=== PATIENT | male | born 1960 | race Caucasian/White ===

== ENCOUNTER 2017-05-25 20:52 | Emergency (ER) | payer OTHER ==
[2017-05-25 21:45] LABS: Anion Gap 14 mmol/L (10-20); BUN (Urea Nitrogen) 13 mg/dL (8.4-25.7); Calc. Creatinine Clearance 0 mL/min (70-130); Calcium 9.4 mg/dL (7.8-10.44); Carbon Dioxide 24 mmol/L (22-29); Chloride 105 mmol/L (98-107); Estimated GFR-MDRD Greater than 90; Glucose 136 mg/dL (70-105); Potassium 4.1 mmol/L (3.5-5.1); Sodium 139 mmol/L (136-145)
[2017-05-25 21:47] LABS: CKMB 1.9 ng/mL (0-6.6); Troponin I Less than 0.010 ng/mL (< 0.028)
[2017-05-25 21:52] LABS: #Basophils 0.1 thou/uL (0.0-0.2); #Eosinphils 0.2 thou/uL (0.0-0.7); #Lymphocytes 1.8 thou/uL (1.20-3.40); #Monocytes 0.9 thou/uL (0.11-0.59); #Neutrophils 5.6 thou/uL (1.40-6.50); %Basophils 1.1 % (0.0-1.0); %Eosinophils 2.6 % (0.0-10.0); %Lymphocytes 20.9 % (21.0-51.0); %Monocytes 9.8 % (0.0-10.0); %Neutrophils 65.5 % (42.0-75.0); Hemoglobin 16.8 g/dL (14.0-18.0); Mean Corpuscular HGB CONC 36.3 g/dL (32.0-36.0); Mean Corpuscular Hemoglobin 34.7 pg (27.0-31.0); Mean Corpuscular Volume 95.6 fl (80.0-94.0); Platelet Count 172 thou/uL (130-400); Red Blood Cell (RBC) Count 4.83 mill/uL (4.70-6.10); White Blood Cell (WBC) Count 8.6 thou/uL (4.8-10.8)
[2017-05-25 21:57] LABS: Band 3 % (5-11); Eosinophils 2 % (0-10); Lymphocytes 21 % (21-51); Manual Diff?? YES; Neutrophil 63 % (42-75)
[2017-05-25 21:58] LABS: Monocytes 10 % (0-10); PLT Morphology Comment Appears Adequate; RBC Morphology Normal; Vacuoles SLIGHT
[2017-05-25 21:59] LABS: MDiff Complete? YES
[2017-05-25] MEDS ORDERED: Ketorolac Tromethamine 30 MG/ML VIAL ONE (21:59)
== END 2017-05-25 22:24 ==
LOC: BURERS 20:52
DX: I10 Essential (primary) hypertension (principal); I25.2 Old myocardial infarction; J43.9 Emphysema, unspecified; F41.9 Anxiety disorder, unspecified; F32.9 Major depressive disorder, single episode, unspecified; I25.10 Atherosclerotic heart disease of native coronary artery without angina pectoris; F17.210 Nicotine dependence, cigarettes, uncomplicated
CPT/HCPCS: 36415; 80048; 82553; 84484; 85025; 93005; 96374; J1885

== ENCOUNTER 2018-02-09 23:12 | Emergency (ER) | payer OTHER ==
[2018-02-09] MEDS ORDERED: Nitroglycerin 0.4 MG TAB (25 Tab Bottle) ONE (23:40)
[2018-02-09 23:47] LABS: Hemoglobin 15.7 g/dL (14.0-18.0); Mean Corpuscular HGB CONC 38.6 g/dL (32.0-36.0); Mean Corpuscular Hemoglobin 32.8 pg (27.0-31.0); Mean Corpuscular Volume 84.9 fL (78.0-98.0); Mean Platelet Volume 5.8 fL (7.4-10.4); Platelet Count 129 thou/uL (130-400); RBC Distribution Width 9.4 % (11.5-14.5); Red Blood Cell (RBC) Count 4.78 mill/uL (4.70-6.10); White Blood Cell (WBC) Count 7.5 thou/uL (4.8-10.8)
[2018-02-09] MEDS ORDERED: cloNIDine 0.1 MG TAB ONE (23:55)
[2018-02-09 23:59] LABS: ALT (SGPT) 29 U/L (8-55); AST (SGOT) 18 U/L (5-34); Albumin 3.3 g/dL (3.5-5.0); Alkaline Phosphatase 86 U/L (40-150); Anion Gap 11 mmol/L (10-20); BUN (Urea Nitrogen) 9 mg/dL (8.4-25.7); Bilirubin, Total 0.4 mg/dL (0.2-1.2); Calc. Creatinine Clearance 0 mL/min (70-130); Carbon Dioxide 26 mmol/L (22-29); Chloride 109 mmol/L (98-107); Estimated GFR-MDRD Greater than 90; Globulin 3.2 g/dL (2.4-3.5); Glucose 177 mg/dL (70-105); Lipase 26 U/L (8-78); Potassium 3.7 mmol/L (3.5-5.1); Protein, Total 6.5 g/dL (6.0-8.3); Sodium 142 mmol/L (136-145)
[2018-02-10] LABS: Troponin I Less than 0.010 ng/mL (< 0.028)
[2018-02-10 00:06] LABS: #Basophils 0.1 thou/uL (0.0-0.2); #Eosinphils 0.1 thou/uL (0.0-0.7); #Monocytes 0.8 thou/uL (0.11-0.59); #Neutrophils 4.5 thou/uL (1.40-6.50); %Basophils 1.4 % (0.0-1.0); %Eosinophils 1.9 % (0.0-10.0); %Lymphocytes 26.8 % (21.0-51.0); %Monocytes 10.6 % (0.0-10.0); %Neutrophils 59.3 % (42.0-75.0); PLT Morphology Comment Appears Decreased; RBC Morphology Normal
[2018-02-10 00:08] LABS: Manual Diff?? NO
[2018-02-10 00:09] LABS: MDiff Complete? YES
[2018-02-10] MEDS ORDERED: Ibuprofen 800 MG TAB ONE (01:30)
[2018-02-10 01:55] LABS: Troponin I Less than 0.010 ng/mL (< 0.028)
== END 2018-02-10 02:08 ==
LOC: BURERS 23:12
DX: I10 Essential (primary) hypertension (principal); I25.2 Old myocardial infarction; I25.10 Atherosclerotic heart disease of native coronary artery without angina pectoris; J43.9 Emphysema, unspecified; F32.9 Major depressive disorder, single episode, unspecified; F41.9 Anxiety disorder, unspecified; F17.210 Nicotine dependence, cigarettes, uncomplicated; Z79.82 Long term (current) use of aspirin; Z79.899 Other long term (current) drug therapy; Z79.51 Long term (current) use of inhaled steroids
CPT/HCPCS: 36415; 80053; 82553; 83690; 83880; 84484; 85025; 93005; 96360; 96361

== ENCOUNTER 2021-05-08 14:53 | Emergency (ER) | payer MEDICAID, SELFPAY ==
[2021-05-08] MEDS ORDERED: Ketorolac Tromethamine 30 MG/ML VIAL ONE (15:53)
== END 2021-05-08 16:05 | disposition home or self-care (01) ==
LOC: BURERS 14:53
DX: S93.602A Unspecified sprain of left foot, initial encounter (principal); F17.210 Nicotine dependence, cigarettes, uncomplicated; I25.2 Old myocardial infarction; I25.10 Atherosclerotic heart disease of native coronary artery without angina pectoris; I10 Essential (primary) hypertension; X58.XXXA Exposure to other specified factors, initial encounter
CPT/HCPCS: J1885

== ENCOUNTER 2021-12-29 04:34 | Emergency (ER) | payer OTHER ==
[2021-12-29] MEDS ORDERED: Iopamidol 370 76% 100 ML VIAL FS ONE (04:35)
[2021-12-29] MEDS ORDERED: Ketorolac Tromethamine 30 MG/ML VIAL ONE (05:32)
[2021-12-29] MEDS ORDERED: Clindamycin/D5W 900 mg/50 ml Premix Bag ONE (05:32)
[2021-12-29 05:40] LABS: #Basophils 0.1 thou/uL (0.0-0.2); #Eosinphils 0.3 thou/uL (0.0-0.7); #Lymphocytes 2.3 thou/uL (1.20-3.40); #Monocytes 0.7 thou/uL (0.11-0.59); #Neutrophils 5.5 thou/uL (1.40-6.50); %Eosinophils 3.2 % (0.0-10.0); %Lymphocytes 26.1 % (21.0-51.0); %Monocytes 7.7 % (0.0-10.0); %Neutrophils 62.1 % (42.0-75.0); Hemoglobin 17.9 g/dL (14.0-18.0); Mean Corpuscular HGB CONC 32.7 g/dL (32.0-36.0); Mean Corpuscular Hemoglobin 32.8 pg (27.0-31.0); Mean Platelet Volume 7.4 fL (7.4-10.4); Platelet Count 140 thou/uL (130-400); RBC Distribution Width 12.8 % (11.5-14.5); Red Blood Cell (RBC) Count 5.45 mill/uL (4.70-6.10); White Blood Cell (WBC) Count 8.9 thou/uL (4.8-10.8)
[2021-12-29 05:47] LABS: Anion Gap 15 mmol/L (10-20); BUN (Urea Nitrogen) 15 mg/dL (8.4-25.7); Calc. Creatinine Clearance 0 mL/min (70-130); Calcium 8.9 mg/dL (7.8-10.44); Carbon Dioxide 30 mmol/L (23-31); Chloride 100 mmol/L (98-107); Glucose 118 mg/dL (80-115); Potassium 4.1 mmol/L (3.5-5.1); Sodium 141 mmol/L (136-145)
[2021-12-29] MEDS ORDERED: methylPREDNISolone Sod Succ/PF 125 MG/2 ML VIAL ONE (06:56)
== END 2021-12-29 07:03 | disposition home or self-care (01) ==
LOC: BURERS 04:34
DX: L04.8 Acute lymphadenitis of other sites (principal); I25.2 Old myocardial infarction; J44.9 Chronic obstructive pulmonary disease, unspecified; I11.0 Hypertensive heart disease with heart failure; I50.9 Heart failure, unspecified; I25.10 Atherosclerotic heart disease of native coronary artery without angina pectoris; F17.210 Nicotine dependence, cigarettes, uncomplicated
CPT/HCPCS: 70491; 80048; 85025; 96374; 96375; J1885; J2930; J3490; Q9967